=== PATIENT | female | born 1965 | race Caucasian/White ===

== ENCOUNTER 2018-07-27 10:59 | Inpatient (IN) | payer OTHER ==
[2018-07-27 13:09] LABS: BASO # 0.1 10^3/uL (0.0-0.2); BASO % 0.7 % (0.0-1.0); EOS # 0.5 10^3/uL (0.0-0.50); EOS % 5.2 % (0.0-3.0); HEMATOCRIT 33.9 % (36.0-47.0); HEMOGLOBIN 11.5 g/dl (12.0-15.5); IMMATURE GRANULOCYTE % 0.2 % (0-3.0); LYMPH # 2.3 10^3/uL (1.5-4.5); LYMPH % 25.4 % (24.0-44.0); MEAN CORPUSCULAR HGB CONC 33.9 g/dl (32.0-36.5); MEAN CORPUSCULAR VOLUME 91.4 fl (80.0-96.0); MONO # 0.7 10^3/uL (0.0-0.8); MONO % 7.2 % (0.0-5.0); NEUTROPHILS # 5.6 10^3/uL (1.8-7.7); NEUTROPHILS % 61.3 % (36.0-66.0); PLATELET COUNT, AUTOMATED 246 10^3/uL (150-450); RED BLOOD COUNT 3.71 10^6/uL (4.00-5.40); RED CELL DISTRIBUTION WIDTH 14.1 % (11.5-14.5); WHITE BLOOD COUNT 9.1 10^3/uL (4.0-10.0)
[2018-07-27 13:23] LABS: INR 0.95; PROTHROMBIN TIME 12.8 SECONDS (12.1-14.4)
[2018-07-27 13:39] LABS: ALBUMIN 3.4 GM/DL (3.2-5.2); ALBUMIN/GLOBULIN RATIO 0.94 (1.00-1.93); ALKALINE PHOSPHATASE 79 U/L (45-117); ALT/SGPT 42 U/L (12-78); ANION GAP 7 MEQ/L (8-16); AST/SGOT 35 U/L (7-37); BILIRUBIN,TOTAL 0.2 MG/DL (0.2-1.0); BLOOD UREA NITROGEN 13 MG/DL (7-18); CALCIUM LEVEL 9.1 MG/DL (8.5-10.1); CARBON DIOXIDE LEVEL 31 MEQ/L (21-32); CHLORIDE LEVEL 104 MEQ/L (98-107); CREATININE FOR GFR 0.79 MG/DL (0.55-1.30); GLOMERULAR FILTRATION RATE > 60.0 (>51); GLUCOSE, FASTING 86 MG/DL (70-100); POTASSIUM SERUM 3.2 MEQ/L (3.5-5.1); SODIUM LEVEL 142 MEQ/L (136-145)
[2018-07-27] MEDS ORDERED: PROPOFOL 200 MG/20 ML VIAL As Ordered (16:26)
[2018-07-27] MEDS ORDERED: LIDOCAINE 2% INJ 100 MG/5 ML SDV (FOR ANES.) As Ordered (16:27)
[2018-07-27] MEDS ORDERED: ROCURONIUM BROMIDE 50 MG/5 ML VIAL As Ordered (16:28)
[2018-07-27] MEDS ORDERED: dexameTHASONE 4 MG/ML 1ML VIAL (J1100) As Ordered (16:29)
[2018-07-27] MEDS ORDERED: ONDANSETRON 4MG/2ML VIAL (J2405) As Ordered ×2 (16:29→18:40)
[2018-07-27] MEDS ORDERED: fentaNYL 100 MCG/2 ML INJECTION (J3010) As Ordered ×2 (16:31→17:07)
[2018-07-27] MEDS ORDERED: MIDAZOLAM INJ 2 MG/2 ML VIAL (J2250) As Ordered (16:31)
[2018-07-27] MEDS: CHLORHEXIDINE ORAL RINSE 0.12%/15ML 120ML BOTTLE As Ordered (17:00)
[2018-07-27] MEDS ORDERED: NEOSTIGMINE 10 MG/10 ML VIAL (J2710) As Ordered (17:26)
[2018-07-27] MEDS ORDERED: GLYCOPYRROLATE INJ 0.2 MG/ML 2 ML VIAL As Ordered ×2 (17:26)
[2018-07-27] MEDS ORDERED: KETOROLAC 60 MG/2 ML VIAL (J1885) As Ordered (17:31)
[2018-07-27] MEDS: LIDOCAINE 2% W/ EPINEPHRINE 1.7 ML DENTAL INJ As Ordered (18:14)
[2018-07-27] MEDS ORDERED: MORPHINE 1MG/ML IN 0.9% NACL 100ML IV BAG As Ordered (18:33)
[2018-07-27] MEDS ORDERED: PERCOCET 5MG/325MG TAB PO (18:45)
[2018-07-27] MEDS ORDERED: LR 1,000 ML IV (18:45)
[2018-07-27] MEDS ORDERED: fentaNYL 100 MCG/2 ML INJECTION (J3010) IV (18:45)
[2018-07-27] MEDS ORDERED: UNASYN 1.5 GM VIAL As Ordered (18:48)
[2018-07-27] MEDS ORDERED: METOCLOPRAMIDE INJ 10MG/2ML VIAL (J2765) As Ordered (18:56)
[2018-07-27] MEDS ORDERED: diphenhydrAMINE INJ 50MG/ML VIAL (J1200) IV ×2 (19:00→21:45)
[2018-07-27] MEDS ORDERED: NALBUPHINE HCL 10 MG/ML AMP (J2300) IV (19:00)
[2018-07-27] MEDS ORDERED: NALOXONE INJ 0.4 MG/1 ML VIAL (J2310) IV (19:00)
[2018-07-27] MEDS ORDERED: ONDANSETRON 4MG/2ML VIAL (J2405) IV (19:00)
[2018-07-27] MEDS: AMPICILLIN SOD/SULBACTAM SOD 3 GM in D5W MINI-BAG PLUS 100 ML IV (19:00)
[2018-07-27] MEDS ORDERED: EPIDURAL/PCA KEYS XX (19:00)
[2018-07-27] MEDS: METOCLOPRAMIDE INJ 10MG/2ML VIAL (J2765) IV (19:01)
[2018-07-27] MEDS: ONDANSETRON 4MG/2ML VIAL (J2405) IV (19:01)
[2018-07-27] MEDS: MORPHINE 1MG/ML IN 0.9% NACL 100ML IV BAG IV (19:01)
[2018-07-27] MEDS ORDERED: NORCO, ANEXSIA 5/325MG TABLET (HYDROcodone/ACETAMINOPHEN) PO (19:15)
[2018-07-27] MEDS: POTASSIUM CHLORIDE 10% LIQ 20 MEQ/15 ML UDC PO (21:44)
[2018-07-27] MEDS: NS 1,000 ML IV (21:44)
[2018-07-27] MEDS: IBUPROFEN 800 MG TAB PO (21:46)
[2018-07-28] MEDS: AMPICILLIN SOD/SULBACTAM SOD 3 GM in D5W MINI-BAG PLUS 100 ML IV ×4 (01:52→19:06)
[2018-07-28] MEDS: NS 1,000 ML IV ×2 (06:27→15:28)
[2018-07-28 06:31] LABS: ANION GAP 9 MEQ/L (8-16); BLOOD UREA NITROGEN 10 MG/DL (7-18); CALCIUM LEVEL 7.9 MG/DL (8.5-10.1); CARBON DIOXIDE LEVEL 28 MEQ/L (21-32); CHLORIDE LEVEL 105 MEQ/L (98-107); GLOMERULAR FILTRATION RATE > 60.0 (>51); GLUCOSE, FASTING 114 MG/DL (70-100); POTASSIUM SERUM 4.3 MEQ/L (3.5-5.1); SODIUM LEVEL 142 MEQ/L (136-145)
[2018-07-28] MEDS: IBUPROFEN 800 MG TAB PO ×3 (06:46→21:35)
[2018-07-28 08:45] LABS: C REACTIVE PROTEIN QUANTITATIV 2.32 MG/DL (0.00-0.30)
[2018-07-28] MEDS ORDERED: FLUBLOK(EGG FREE)(QUAD)INFLUENZA VACC 0.5ML SYRINGE (90682)18YRS&OLDER IM (09:00)
[2018-07-28] MEDS: OMEPRAZOLE 20 MG CAP PO (09:00)
[2018-07-28] MEDS ORDERED: TRINTELLIX 20 MG PO (09:00)
[2018-07-28] MEDS: ENALAPRIL MALEATE 10 MG TAB PO (09:01)
[2018-07-28] MEDS: hydroCHLOROthiazide 25 MG TAB PO (09:01)
[2018-07-28] MEDS ORDERED: LIDOCAINE 1% MDV 20ML VIAL As Ordered (13:17)
[2018-07-28] MEDS ORDERED: SODIUM CHLORIDE 0.9% INJ 10 ML SYR IV (15:00)
[2018-07-28] MEDS ORDERED: NORCO, ANEXSIA 5/325MG TABLET (HYDROcodone/ACETAMINOPHEN) PO (16:30)
[2018-07-28] MEDS: SODIUM CHLORIDE 0.9% INJ 10 ML SYR IV (18:00)
[2018-07-28 22:14] LABS: C REACTIVE PROTEIN QUANTITATIV 1.42 MG/DL (0.00-0.30)
[2018-07-29] MEDS: NS 1,000 ML IV (01:47)
[2018-07-29] MEDS: AMPICILLIN SOD/SULBACTAM SOD 3 GM in D5W MINI-BAG PLUS 100 ML IV ×2 (01:47→06:59)
[2018-07-29] MEDS: SODIUM CHLORIDE 0.9% INJ 10 ML SYR IV (06:00)
[2018-07-29] MEDS: IBUPROFEN 800 MG TAB PO ×2 (06:59→14:23)
[2018-07-29 07:06] LABS: HEMATOCRIT 29.3 % (36.0-47.0); MEAN CORPUSCULAR HEMOGLOBIN 30.8 pg (27.0-33.0); MEAN CORPUSCULAR HGB CONC 32.4 g/dl (32.0-36.5); MEAN CORPUSCULAR VOLUME 95.1 fl (80.0-96.0); PLATELET COUNT, AUTOMATED 187 10^3/uL (150-450); RED BLOOD COUNT 3.08 10^6/uL (4.00-5.40); RED CELL DISTRIBUTION WIDTH 14.4 % (11.5-14.5); WHITE BLOOD COUNT 9.2 10^3/uL (4.0-10.0)
[2018-07-29 07:14] LABS: HEMOGLOBIN 9.5 g/dl (12.0-15.5)
[2018-07-29 07:32] LABS: ANION GAP 4 MEQ/L (8-16); BLOOD UREA NITROGEN 7 MG/DL (7-18); CALCIUM LEVEL 8.3 MG/DL (8.5-10.1); CARBON DIOXIDE LEVEL 29 MEQ/L (21-32); CHLORIDE LEVEL 108 MEQ/L (98-107); CREATININE FOR GFR 0.65 MG/DL (0.55-1.30); GLOMERULAR FILTRATION RATE > 60.0 (>51); GLUCOSE, FASTING 89 MG/DL (70-100); POTASSIUM SERUM 3.7 MEQ/L (3.5-5.1); SODIUM LEVEL 141 MEQ/L (136-145)
[2018-07-29] MEDS ORDERED: ENTER DRUG NAME HERE (PATIENT'S OWN MED) PO (09:00)
[2018-07-29] MEDS: hydroCHLOROthiazide 25 MG TAB PO (09:16)
[2018-07-29] MEDS: OMEPRAZOLE 20 MG CAP PO (09:17)
[2018-07-29] MEDS: ENALAPRIL MALEATE 10 MG TAB PO (09:19)
[2018-07-29] MEDS: PIPERACILLIN/TAZOBACTAM SOD 3.375 GM in D5W MINI-BAG PLUS 50 ML IV (12:40)
[2018-07-29] MEDS: FLUBLOK(EGG FREE)(QUAD)INFLUENZA VACC 0.5ML SYRINGE (90682)18YRS&OLDER IM (12:52)
== END 2018-07-29 14:20 | disposition home health service (06) | DRG 863 ==
LOC: M SDC 10:59 → M PED 19:53 → M SDC 20:15 → M PED 19:50
PROC: 0NBV0ZX Excision of Left Mandible, Open Approach, Diagnostic (ICD-10-PCS; principal; 2018-07-27 15:00)
PROC: 02HV33Z Insertion of Infusion Device into Superior Vena Cava, Percutaneous Approach (ICD-10-PCS; 2018-07-27 16:56)
DX: T81.49XA Infection following a procedure, other surgical site, initial encounter (principal); I10 Essential (primary) hypertension; F32.9 Major depressive disorder, single episode, unspecified; K21.9 Gastro-esophageal reflux disease without esophagitis; M27.2 Inflammatory conditions of jaws; E87.5 Hyperkalemia; J30.2 Other seasonal allergic rhinitis; Y83.8 Other surgical procedures as the cause of abnormal reaction of the patient, or of later complication, without mention of misadventure at the time of the procedure; Z79.899 Other long term (current) drug therapy